=== PATIENT | male | born 1985 ===

== ENCOUNTER 2024-12-05 03:26 | Emergency (ER) | payer OTHER ==
[2024-12-05] MEDS: Ibuprofen 600 MG Tab PO ONE ×2 (03:53→03:56)
[2024-12-05] MEDS: Acetaminophen 500 MG Tab PO ONE ×2 (03:54→03:56)
[2024-12-05] MEDS: Diphtheria,Pertussis(Acell),Tetanus Vaccine 0.5 ML Syringe IM ONE (03:59)
[2024-12-05] MEDS: Take Home: Cephalexin 500 MG Cap, 6 Cap Pack PO ONE (04:27)
== END 2024-12-05 04:38 | disposition home or self-care (01) ==
LOC: LL.ED 03:26
DX: S61.431A Puncture wound without foreign body of right hand, initial encounter (principal); Z23 Encounter for immunization; X50.9XXA Other and unspecified overexertion or strenuous movements or postures, initial encounter
CPT/HCPCS: 12001; 73130; 90471; 90715; 99283; A9270